=== PATIENT | female | born 1980 | race Caucasian/White ===

== ENCOUNTER 2017-07-27 02:49 | Emergency (ER) | payer OTHER ==
[~2017-07-27] VITALS: Ht 167.6 cm; Wt 66.4 kg
[~2017-07-27 02:49] MED LIST: AMOXICILLIN 500 MG CAP PO SCH; PRENTAB26 PO
[2017-07-27 02:52] VITALS: BP 126/78; PULSE 72; TEMP 36.8; O2SAT 96; Ht 167.6 cm; Wt 66.4 kg
[2017-07-27] MEDS ORDERED: AMOXICILLIN 500 MG CAP PO STA (03:03)
[2017-07-27] MEDS ORDERED: AMOX500C3 PO (03:17)
[2017-07-27] MEDS ORDERED: GLUT500C PO (03:20)
[2017-07-27] MEDS ORDERED: TYRO500C2 PO (03:20)
[2017-07-27] MEDS ORDERED: CHOL1000 PO (03:20)
--- NOTE | 2017-07-27 03:27 | EMERGENCY ROOM VISIT NOTE ---
History First contact with patient: 02:55 Chief Complaint: EAR PAIN Stated Complaint: SUDDEN INTENSE EARACHE History of Present Illness The patient is a 37 year old female who presents to the Emergency Room with complaints of cold symptoms for the past several days who tonight developed severe left ear pain. Pain currently 8 out of 10. She took Motrin with some improvement. Nothing makes it better or worse. It does not radiate. Patient denies chest pain, dyspnea, sore throat, abdominal pain, neck stiffness. She is tolerating by mouth fluids and food. Review of Systems See HPI for pertinent positives & negatives. A total of 10 systems reviewed and were otherwise negative. Past Medical/Surgical History Endometriosis Social History Smoking Status: Never Smoker Smokeless Tobacco Use: No Drug Use: none Marital Status: Housing Status: lives with family Current/Historical Medications Scheduled Amoxicillin (Amoxil), 500 MG PO TID Cholecalciferol (Vitamin D3), 1 TAB PO DAILY Glutamine (Glutamine), 500 MG PO DAILY Tyrosine (Tyrosine), 500 MG PO DAILY Physical Exam Vital Signs Date Time Temp Pulse Resp B/P (MAP) Pulse Ox O2 Delivery O2 Flow Rate FiO2 07/27/17 02:52 36.8 72 18 126/78 96 Room Air Physical Exam VITALS: Vitals are noted on the nurse's note and reviewed by myself. Vital signs stable. GENERAL: Pleasant female, in no acute distress, nondiaphoretic, well-developed well-nourished. SKIN: The skin was without rashes, erythema, edema, or bruising. There is no tenting of the skin. Capillary reflex less than 2 seconds. HEAD: Normocephalic atraumatic. EARS: Left tympanic membranes erythematous and bulging consistent with otitis media, External auditory canals clear, right tympanic membranes pearly gross with minimal erythema and effusion present. No mastoid tenderness bilaterally. EYES: Pupils equal round and reactive to light and accommodation. Conjunctivae without injection, sclerae without icterus. Extraocular movements intact. NOSE: Patent, turbinates without inflammation or discharge. No sinus tenderness. MOUTH: Mucous membranes moist. Pharynx without erythema or exudate. Uvula midline. Airway patent. Tongue does not deviate. NECK: Supple without nuchal rigidity. No lymphadenopathy. No thyromegaly. Cervical spine is nontender. No JVD. No meningeal signs HEART: Regular rate and rhythm without murmurs gallops or rubs. LUNGS: Clear to auscultation bilaterally without wheezes, rales or rhonchi. No dullness to percussion. No retractions or accessory muscle use. ABDOMEN: Positive bowel sounds x 4. Normal tympanic percussion. Soft, nontender, without masses or organomegaly. Hayes sign negative. No guarding or rebound tenderness. MUSCULOSKELETAL: No muscle atrophy, erythema, or edema noted. NEURO: Patient was alert and oriented to person place and time. Normal sensation to light and sharp touch. No focal neurological deficits. Medical Decision & Procedures ED Course Prior records/ancillary studies reviewed. Triage Nursing notes reviewed. Additional history obtained from family. The patient's history was concerning for a cold symptoms and earache. Differential diagnosis: Etiologies such as viral syndrome, tonsillitis, streptococcal pharyngitis, eustachian tube dysfunction, mastoiditis, otitis, pneumonia, influenza, as well as others were entertained. ER treatment provided: Amoxicillin On reassessment the patient felt better. Diagnostics interpreted by me: Deferred This appears to be consistent with left otitis media. Patient was started on antibiotics. She is advised take medications as directed and to follow-up family care in a few days or here in the ER sooner for severe pain, fevers, neck stiffness, worsening signs or symptoms or as needed. Patient was well- appearing. No signs of meningitis or mastoiditis. By the evaluation outlined above emergent etiologies such as peritonsillar abscess, retropharyngeal abscess , otitis, pneumonia, meningitis, sepsis, bacteremia, as well as others were deemed relatively unlikely. The pt informed about the findings as listed above. All questions were answered and pleased with the treatment. Return instructions were outlined and the patient was discharged in stable condition. Outpatient prescription management: Amoxicillin Referral: The patient was referred back to their primary care physician for follow-up in 2 to 3 days for a recheck of the current condition. Medical Decision As above Medication Reconcilliation Current Medication List: was personally reviewed by me Blood Pressure Screening Patient's blood pressure: Normal blood pressure Impression Primary Impression: Left otitis media Departure Information Dispostion Home / Self-Care Condition GOOD Prescriptions Amoxicillin (AMOXIL) 500 Mg Cap 500 MG PO TID for 10 Days, #30 CAP Prov: Kathy Valero .VALENTIN 07/27/17 Forms WORK / SCHOOL INSTRUCTIONS, HOME CARE DOCUMENTATION FORM, IMPORTANT VISIT INFORMATION Patient Instructions My [facility], ED Otitis Media Acute Adult Additional Instructions Amoxicillin 500 m tablet 3 times a day for 10 days.All antibiotics can cause diarrhea. If this occurs and you feel worse or it does not resolve in 1- 2 days follow up with your doctor or return to the Emergency Department as this could be signs of serious underlying problems. Any medication can cause an allergic reaction, stop the pills immediately and return to the ER for rash, hives, breathing difficulties, or swelling. Acetaminophen(Tylenol) may be used for fever or pain. Use 1000mg every six hours as needed. Avoid using more than 3000mg in a 24 hour period. (AND/OR) Ibuprofen(Motrin, Advil) may be used for fever or pain. Use 600mg every six hours as needed. Take with food. Avoid using more than 2400mg in a 24 hour period. Do not use 2400mg per day for more than three consecutive days without physician direction. Prolonged inappropriate use can lead to stomach upset or ulcers. Afrin nasal spray: 2-3 sprays to each nostril twice daily as needed for congestion. Do not use for more than 3-4 days because it can lead to worsening rebound congestion. Pseudoephedrine(Sudaphed): 30-60mg every 6 hours as needed for nasal congestion. Do not take this with other stimulant products or supplements. Rest and drink plenty of fluids. Controlling your fever with Tylenol and Ibuprofen as above will make you feel better. Wash your hands after nose blowing, sneezing, or coughing. Most germs are spread through contact, therefore improper hygiene may result in your close contacts and loved ones becoming ill just like you. Continue current medications. Return to the ER for severe headache, neck stiffness, chest pain, difficulty breathing, fevers, vomiting, worsening of your condition, or as needed. Follow up with your primary physician this week for a recheck of your current condition. Problem Qualifiers Primary Impression: Left otitis media Otitis media type: suppurative Chronicity: acute Recurrence: not specified as recurrent Spontaneous tympanic membrane rupture: without spontaneous rupture Qualified Codes: H66.002 - Acute suppurative otitis media without spontaneous rupture of ear drum, left ear
== END 2017-07-27 03:22 | disposition home or self-care (01) ==
LOC: C.EDB 02:49 → C.EDA 03:22
DX: H66.92 Otitis media, unspecified, left ear (principal)

== ENCOUNTER → 2017-08-01 | Outpatient (CLI) | payer OTHER ==
[~2017-08-01] MED LIST changes: +AMOX500C3 PO; -AMOXICILLIN 500 MG CAP PO SCH; +CHOL1000 PO; +GLUT500C PO; -PRENTAB26 PO; +TYRO500C2 PO
== END | disposition home or self-care (01) ==
LOC: C.LABBC 11:37
PROVIDERS: ATTEND Internal Medicine
DX: R21 Rash and other nonspecific skin eruption (principal); J02.9 Acute pharyngitis, unspecified

== ENCOUNTER → 2018-04-01 | Outpatient (CLI) | payer OTHER ==
[~2018-04-01] MED LIST changes: -AMOX500C3 PO
== END | disposition home or self-care (01) ==
LOC: C.LABBC 14:58
PROVIDERS: ATTEND Nurse Practitioner Adult Health
DX: J30.9 Allergic rhinitis, unspecified (principal)